=== PATIENT | male | born 1990 | race Caucasian/White ===

== ENCOUNTER → 2019-04-30 | Outpatient (CLI) | payer BC | LOC: COL.RAD 07:47 | DX: K59.00 Constipation, unspecified (principal); R12 Heartburn; R10.9 Unspecified abdominal pain; R11.0 Nausea; R19.7 Diarrhea, unspecified | CPT/HCPCS: A9537 ==

== ENCOUNTER → 2019-08-18 | Outpatient (CLI) | payer BC | LOC: COL.RAD 07:27 | DX: A04.8 Other specified bacterial intestinal infections (principal); K59.00 Constipation, unspecified | CPT/HCPCS: A9541 ==